=== PATIENT | male | born 1950 | race Caucasian/White ===

== ENCOUNTER → 2022-03-20 | Outpatient (CLI) | payer MEDICARE ==
[2022-03-20 14:25] LABS: HGB 13.9 g/dL (13.0-17.0); MCHC 32.3 g/dL (32.0-37.0); NRBC Per 100 WBC 0 /100 WBCS (0.0-0.0); Platelet Count 91 X 10*3/uL (140-440); RBC 4.48 X 10*6/uL (4.40-5.60); RDW 13.6 % (11.5-14.5); WBC 3.97 X 10*3/uL (4.50-10.00)
[2022-03-20 14:34] LABS: Rheumatoid Factor, Qnt <10 IU/mL (0-15); Uric Acid 11.2 mg/dL (3.7-8.7)
== END | disposition home or self-care (01) ==
LOC: LABWHC1 08:54
PROVIDERS: ATTEND Podiatrist
DX: M79.672 Pain in left foot (principal)
CPT/HCPCS: 36415; 84550; 85027; 86140; 86431

== ENCOUNTER 2025-01-04 08:03 | Emergency (ER) | payer MEDICARE ==
--- NOTE | 2025-01-04 08:11 | ED ---
Extremity Problem HPI - General Chief complaint: Extremity Problem,Nontraumatic Stated complaint: L leg pain and swelling Time Seen by Provider: 01/04/25 08:08 Source: patient, RN notes reviewed Mode of arrival: wheelchair Limitations: no limitations - History of Present Illness Initial comments: 74-year-old male presents emergency department chief complaint of left leg pain and swelling. Patient states that started without injury or known tr auma. Patient states he is concerned about possible blood clot without history. He states pain started as knee is now into his thigh with increasing swelling denies any discoloration denies any focal weakness denies any back pain patient states he has no abdominal complaints no chest pain or shortness of breath. Patient is able to ambulate in which he states he initially thought this was related to his gout but states is not his normal issues. - Related Data Allergies Allergy/AdvReac Type Severity Reaction Status Date / Time No Known Allergies Allergy Verified 01/04/25 08:09 Review of Systems ROS Statement: Those systems with pertinent positive or pertinent negative responses have been documented in the HPI. ROS Other: All systems not noted in ROS Statement are negative. Past Medical History Past Medical History: Cancer Additional Past Medical History / Comment(s): Gout,Kidney Cancer, non hodgkin's lymphoma History of Any Multi-Drug Resistant Organisms: None Reported Additional Past Surgical History / Comment(s): kidney removed Past Psychological History: No Psychological Hx Reported Smoking Status: Former smoker Past Alcohol Use History: Occasional Past Drug Use History: None Reported General Exam Limitations: no limitations General appearance: alert, in no apparent distress Head exam: Present: atraumatic, normocephalic, normal inspection Eye exam: Present: normal appearance, PERRL, EOMI. Absent: scleral icterus, conjunctival injection, periorbital swelling ENT exam: Present: normal exam, mucous membranes moist Neck exam: Present: normal inspection, full ROM. Absent: tenderness, meningismus, lymphadenopathy Respiratory exam: Present: normal lung sounds bilaterally. Absent: respiratory distress, wheezes, rales, rhonchi, stridor Cardiovascular Exam: Present: regular rate, normal rhythm, normal heart sounds. Absent: systolic murmur, diastolic murmur, rubs, gallop, clicks Extremities exam: Present: other (Left knee, left thigh there is notable swelling there is no erythema, patient does have full range of motion with equal pedal pulses there is no calf tenderness.) Neurological exam: Present: alert, oriented X3, reflexes normal. Absent: motor sensory deficit Course Vital Signs 01/04/25 01/04/25 01/04/25 08:04 08:55 11:30 Temperature 97.6 F 98 F Pulse Rate 70 60 62 Respiratory 18 16 16 Rate Blood Pressure 203/83 177/81 168/80 O2 Sat by Pulse 98 96 97 Oximetry Medical Decision Making - Medical Decision Making Was pt. sent in by a medical professional or institution (, PA, CAMPUS PRESIDENT, urgent care, hospital, or assisted...) When possible be specific @ -No Did you speak to anyone other than the patient for history (EMS, parent, family, police, friend...)? What history was obtained from this source @ -No Did you review nursing and triage notes (agree or disagree)? Why? @ -I reviewed and agree with nursing and triage notes Were old charts reviewed (outside hosp., previous admission, EMS record, old EKG, old radiological studies, urgent care reports/EKG's, assisted records)? Report findings @ -No old charts were reviewed Differential Diagnosis (chest pain, altered mental status, abdominal pain women, abdominal pain men, vaginal bleeding, weakness, fever, dyspnea, syncope, headache, dizziness, GI bleed, back pain, seizure, CVA, palpatations, mental health, musculoskeletal)? @ -Differential Musculoskeletal Muscular strain, contusion, ligament sprain, fracture, arthritis, septic arthritis, bursitis, cellulitis, muscle spasm, nerve compression, DVT, arterial occlusion, herpes zoster, electrolyte abnormality, tumor.... This is not meant to be in all inclusive list EKG interpreted by me (3pts min.). @ -None X-rays interpreted by me (1pt min.). @ -X-ray left knee no acute fracture or acute anomaly CT interpreted by me (1pt min.). @ -None done U/S interpreted by me (1pt. min.). @ -Ultrasound venous Doppler left leg negative for acute DVT What testing was considered but not performed or refused? (CT, X-rays, U/S, labs)? Why? @ -None What meds were considered but not given or refused? Why? @ -None Did you discuss the management of the patient with other professionals (professionals i.e. , PA, CAMPUS PRESIDENT, lab, RT, psych nurse, vp digital marketing social media and crm, civil engineering teacher, teacher, technology officer, rn case manager)? Give summary @ -No Was smoking cessation discussed for >3mins.? @ -No Was critical care preformed (if so, how long)? @ -No Were there social determinants of health that impacted care today? How? (Homelessness, low income, unemployed, alcoholism, drug addiction, transportation, low edu. Level, literacy, decrease access to med. care, [facility]ci, rehab)? @ -No Was there de-escalation of care discussed even if they declined (Discuss DNR or withdrawal of care, Hospice)? DNR status @ -No What co-morbidities impacted this encounter? (DM, HTN, Smoking, COPD, CAD, Cancer, CVA, ARF, Chemo, Hep., AIDS, mental health diagnosis, sleep apnea, morbid obesity)? @ -None Was patient admitted / discharged? Hospital course, mention meds given and route, prescriptions, significant lab abnormalities, going to OR and other pertinent info. @ -Discharged patient presented for left leg pain and swelling there is no erythema no signs of infection he has neurovascular intact negative ultrasound and pulses are equal bilaterally patient may have soft tissue injury patient will follow-up with orthopedics we discussed strict return parameters patient feels comfortable with discharge. Undiagnosed new problem with uncertain prognosis? @ -No Drug Therapy requiring intensive monitoring for toxicity (Heparin, Nitro, Insulin, Cardizem)? @ -No Were any procedures done? @ -No Diagnosis/symptom? @Leg pain and swelling Acute, or Chronic, or Acute on Chronic? @ -Acute Uncomplicated (without systemic symptoms) or Complicated (systemic symptoms)? @ -Uncomplicated Side effects of treatment? @ -No Exacerbation, Progression, or Severe Exacerbation? @ -No Poses a threat to life or bodily function? How? (Chest pain, [place], [place], pneumonia, PE, COPD, DKA, ARF, appy, cholecystitis, CVA, Diverticulitis, Homicidal, Suicidal, threat to staff... and all critical care pts) @ -No - Lab Data Result diagrams: 01/04/25 08:26 01/04/25 08:26 Lab Results 01/04/25 01/04/25 01/04/25 Range/Units 08:26 08:26 08:26 WBC 5.5 (3.8-10.6) k/uL RBC 4.65 (4.30-5.90) m/uL Hgb 14.8 (13.0-17.5) gm/dL Hct 43.8 (39.0-53.0) % MCV 94.1 (80.0-100.0) fL MCH 31.8 (25.0-35.0) pg MCHC 33.8 (31.0-37.0) g/dL RDW 13.6 (11.5-15.5) % Plt Count 87 L (150-450) k/uL MPV 8.2 Neutrophils % 66 % Lymphocytes % 22 % Monocytes % 8 % Eosinophils % 2 % Basophils % 0 % Neutrophils # 3.6 (1.3-7.7) k/uL Lymphocytes # 1.2 (1.0-4.8) k/uL Monocytes # 0.4 (0-1.0) k/uL Eosinophils # 0.1 (0-0.7) k/uL Basophils # 0.0 (0-0.2) k/uL PT 10.6 (10.0-12.5) sec INR 0.9 (<1.2) APTT 24.0 (22.0-30.0) sec Sodium 140 (137-145) mmol/L Potassium 4.8 (3.5-5.1) mmol/L Chloride 104 (98-107) mmol/L Carbon Dioxide 27 (22-30) mmol/L Anion Gap 9 mmol/L BUN 39 H (9-20) mg/dL Creatinine 1.88 H (0.66-1.25) mg/dL Est GFR (CKD-EPI)AfAm 39 (>60 ml/min/1.73 sqM) Est GFR (CKD-EPI)NonAf 34 (>60 ml/min/1.73 sqM) Glucose 129 H (74-99) mg/dL Uric Acid (3.5-8.5) mg/dL Calcium 9.4 (8.4-10.2) mg/dL Total Bilirubin 1.2 (0.2-1.3) mg/dL AST 30 (17-59) U/L ALT 24 (4-49) U/L Alkaline Phosphatase 67 (38-126) U/L C-Reactive Protein (<1.0) mg/dL Total Protein 6.6 (6.3-8.2) g/dL Albumin 4.0 (3.5-5.0) g/dL 01/04/25 Range/Units 08:26 WBC (3.8-10.6) k/uL RBC (4.30-5.90) m/uL Hgb (13.0-17.5) gm/dL Hct (39.0-53.0) % MCV (80.0-100.0) fL MCH (25.0-35.0) pg MCHC (31.0-37.0) g/dL RDW (11.5-15.5) % Plt Count (150-450) k/uL MPV Neutrophils % % Lymphocytes % % Monocytes % % Eosinophils % % Basophils % % Neutrophils # (1.3-7.7) k/uL Lymphocytes # (1.0-4.8) k/uL Monocytes # (0-1.0) k/uL Eosinophils # (0-0.7) k/uL Basophils # (0-0.2) k/uL PT (10.0-12.5) sec INR (<1.2) APTT (22.0-30.0) sec Sodium (137-145) mmol/L Potassium (3.5-5.1) mmol/L Chloride (98-107) mmol/L Carbon Dioxide (22-30) mmol/L Anion Gap mmol/L BUN (9-20) mg/dL Creatinine (0.66-1.25) mg/dL Est GFR (CKD-EPI)AfAm (>60 ml/min/1.73 sqM) Est GFR (CKD-EPI)NonAf (>60 ml/min/1.73 sqM) Glucose (74-99) mg/dL Uric Acid 8.0 (3.5-8.5) mg/dL Calcium (8.4-10.2) mg/dL Total Bilirubin (0.2-1.3) mg/dL AST (17-59) U/L ALT (4-49) U/L Alkaline Phosphatase (38-126) U/L C-Reactive Protein 8.8 H (<1.0) mg/dL Total Protein (6.3-8.2) g/dL Albumin (3.5-5.0) g/dL Disposition Clinical Impression: Leg pain, Leg swelling Disposition: HOME SELF-CARE Condition: Stable Instructions (If sedation given, give patient instructions): Leg Pain (ED) Additional Instructions: Please return to the Emergency Department if symptoms worsen or any other concerns. Is patient prescribed a controlled substance at d/c from ED?: No Referrals: None,Stated [Primary Care Provider] - 1-2 days Chapin Mallory DO [Doctor of Osteopathic Medicine] - 1-2 days Time of Disposition: 11:03
[2025-01-04 08:46] LABS: ALT 24 U/L (4-49); AST 30 U/L (17-59); African American GFR (CKD) 39 (>60 ml/min/1.73 sqM); Alkaline Phosphatase 67 U/L (38-126); Anion Gap 9 mmol/L; Basophils % (A) 0 %; Blood Urea Nitrogen 39 mg/dL (9-20); Calcium 9.4 mg/dL (8.4-10.2); Carbon Dioxide 27 mmol/L (22-30); Chloride 104 mmol/L (98-107); Eosinophils # (A) 0.1 k/uL (0-0.7); Eosinophils % (A) 2 %; Glucose 129 mg/dL (74-99); HCT 43.8 % (39.0-53.0); HGB 14.8 gm/dL (13.0-17.5); Lymphocytes # (A) 1.2 k/uL (1.0-4.8); Lymphocytes % (A) 22 %; MCH 31.8 pg (25.0-35.0); MCHC 33.8 g/dL (31.0-37.0); MCV 94.1 fL (80.0-100.0); Mean Platelet Volume 8.2; Monocytes # (A) 0.4 k/uL (0-1.0); Monocytes % (A) 8 %; Neutrophils # (A) 3.6 k/uL (1.3-7.7); Neutrophils % (A) 66 %; Non-African American GFR(CKD) 34 (>60 ml/min/1.73 sqM); Potassium 4.8 mmol/L (3.5-5.1); RBC 4.65 m/uL (4.30-5.90); RDW 13.6 % (11.5-15.5); Sodium 140 mmol/L (137-145); Total Bilirubin 1.2 mg/dL (0.2-1.3); Total Protein 6.6 g/dL (6.3-8.2); WBC 5.5 k/uL (3.8-10.6)
[2025-01-04] MEDS: KETOROLAC 15 MG/ML 1 ML VIAL IVP STA (08:48)
[2025-01-04 08:49] LABS: INR 0.9 (<1.2); Prothrombin Time 10.6 sec (10.0-12.5)
--- NOTE | 2025-01-04 08:54 | US ---
EXAMINATION TYPE: US venous doppler duplex LE LT DATE OF EXAM: 01/04/2025 8:43 AM COMPARISON: NONE CLINICAL INDICATION: Male, 74 years old with history of pain; Pain and swelling since , Hx HT N and renal cancer with kidney removal 201; denies any other signs, symptoms, or relevant history , P ain TECHNIQUE: The lower extremity deep venous system is examined utilizing real time linear array sonog ammon with graded compression, color doppler sonography, and spectral doppler. SIDE PERFORMED: Left FINDINGS: VESSELS IMAGED: Common Femoral Vein Deep Femoral Vein Greater Saphenous Vein * Femoral Vein Popliteal Vein Small Saphenous Vein * Proximal Calf Veins (* superficial vessels) Left Leg: Negative for DVT, Color Doppler imaging shows patency of the vessels. Spectral waveforms a re within normal limits. IMPRESSION: 1. Left lower extremity ultrasound negative for deep venous thrombosis. [facility], , 01/04/2025 8:51 AM
[2025-01-04 09:12] VITALS: RESP 16
[2025-01-04 09:18] LABS: C Reactive Protein 8.8 mg/dL (<1.0)
[2025-01-04 09:43] LABS: Platelet Count 87 k/uL (150-450)
--- NOTE | 2025-01-04 09:49 | XR ---
EXAMINATION TYPE: XR knee complete LT DATE OF EXAM: 01/04/2025 9:17 AM COMPARISON: None. CLINICAL INDICATION: Male, 74 years old with history of pain, pain TECHNIQUE: 3 view(s) obtained. FINDINGS: Joint spaces are preserved. No acute fracture or dislocation evident. No joint effusion is evident. S oft tissues appear normal. Follow up exams can be performed 7-10 days from acute trauma for continued pain. IMPRESSION: 1. No acute osseous abnormalities left knee [facility], , 01/04/2025 9:46 AM
[2025-01-04] MEDS: ACET/COD 300 MG/30 MG STARTER PACK 6 TAB BTL PO STA (11:15)
[2025-01-04] MEDS: ONDANSETRON 4 MG/2 ML VIAL IVP STA (11:15)
[2025-01-04] MEDS: HYDROmorphone 0.5 MG/0.5 ML SYRINGE IVP STA (11:16)
[2025-01-04 11:31] VITALS: BP 168/80; PULSE 62; TEMP 98
== END 2025-01-04 11:30 | disposition home or self-care (01) ==
LOC: EC 08:03
DX: M79.605 Pain in left leg (principal); Z87.891 Personal history of nicotine dependence
CPT/HCPCS: 36415; 80053; 84550; 85025; 85610; 85730; 86140; 73562; 93971; 99284; 96374; 96375 ×2; J2405; J1885; J1171

== ENCOUNTER → 2025-01-05 | Outpatient (CLI) | payer MEDICARE ==
[2025-01-05 15:43] LABS: Appearance,BF Cloudy; Color,BF Pink
[2025-01-05 17:00] LABS: Nucleated Cells, Body Fluid 4450 /uL; RBC, Body Fluid 19250 /uL
[2025-01-05 17:02] LABS: Mononuclear WBC,Body Fluid 9 %; Polynuclear WBC,Body Fluid 91 %; Total Cells Counted,Body Fluid 100
[2025-01-06 04:01] LABS: Synovial Fld Crystals Monosod Urate (None Seen)
== END | disposition home or self-care (01) ==
LOC: LABWHC1 12:31
PROVIDERS: ATTEND Orthopaedic Surgery
DX: M25.562 Pain in left knee (principal)
CPT/HCPCS: 36415; 85652; 86140; 87070; 87075; 87205; 89050; 89060

== ENCOUNTER 2025-02-20 03:07 | Inpatient (IN) | payer MEDICARE ==
[2025-02-20 03:50] LABS: ALT 16 U/L (4-49); AST 27 U/L (17-59); African American GFR (CKD) 35 (>60 ml/min/1.73 sqM); Alkaline Phosphatase 74 U/L (38-126); Anion Gap 12 mmol/L; Blood Urea Nitrogen 34 mg/dL (9-20); Calcium 9.4 mg/dL (8.4-10.2); Carbon Dioxide 25 mmol/L (22-30); Chloride 105 mmol/L (98-107); Glucose 162 mg/dL (74-99); Non-African American GFR(CKD) 31 (>60 ml/min/1.73 sqM); Sodium 142 mmol/L (137-145); Total Bilirubin 1.2 mg/dL (0.2-1.3); Total Protein 6.3 g/dL (6.3-8.2)
[2025-02-20 03:56] LABS: Partial Thromboplastin Time 22.6 sec (22.0-30.0); Prothrombin Time 10.9 sec (10.0-12.5)
[2025-02-20 03:59] LABS: NT-Pro-B-Type Natriuretic Pept 3400 pg/mL
--- NOTE | 2025-02-20 04:16 | ED ---
SOB HPI - General Chief Complaint: Shortness of Breath Stated Complaint: Difficulty Breathing Source: EMS Mode of arrival: EMS - History of Present Illness Initial Comments: 74-year-old male with past medical history of kidney cancer status post nephrectomy who presents emergency department reporting shortness of breath. States it started in the middle of the night. He has never had breathing issues. Denies history of asthma or COPD. Did smoke however quit 20 years ago. No history of any heart problems. Does admit to hypertension. He is supposed to be on 3 medications to control his blood pressure however he has not been taking them for approximately 1 month. States he is in between primary care doctors. Denies history of congestive heart failure. No history of coronary disease. Denies any chest pain. No history of fevers, chills or cough. Continues to urinate normally. No other alleviating, precipitating modifying factors - Related Data Allergies Allergy/AdvReac Type Severity Reaction Status Date / Time No Known Allergies Allergy Verified 01/04/25 08:09 Review of Systems ROS Statement: Those systems with pertinent positive or pertinent negative responses have been documented in the HPI. ROS Other: All systems not noted in ROS Statement are negative. Past Medical History Past Medical History: Cancer Additional Past Medical History / Comment(s): Gout,Kidney Cancer, non hodgkin's lymphoma History of Any Multi-Drug Resistant Organisms: None Reported Additional Past Surgical History / Comment(s): kidney removed Past Psychological History: No Psychological Hx Reported Smoking Status: Former smoker Past Alcohol Use History: Occasional Past Drug Use History: None Reported General Exam General appearance: alert, in no apparent distress Head exam: Present: atraumatic, normocephalic, normal inspection Eye exam: Present: normal appearance, PERRL, EOMI. Absent: scleral icterus, conjunctival injection, periorbital swelling ENT exam: Present: normal exam, mucous membranes moist Neck exam: Present: normal inspection. Absent: tenderness, meningismus, lymphadenopathy Respiratory exam: Present: normal lung sounds bilaterally. Absent: respiratory distress, wheezes, rales, rhonchi, stridor Cardiovascular Exam: Present: regular rate, normal rhythm, normal heart sounds. Absent: systolic murmur, diastolic murmur, rubs, gallop, clicks GI/Abdominal exam: Present: soft, normal bowel sounds. Absent: distended, tenderness, guarding, rebound, rigid Extremities exam: Present: normal inspection, full ROM, normal capillary refill. Absent: tenderness, pedal edema, joint swelling, calf tenderness Back exam: Present: normal inspection Neurological exam: Present: alert, oriented X3, CN II-XII intact Psychiatric exam: Present: normal affect, normal mood Skin exam: Present: warm, dry, intact, normal color. Absent: rash Course Vital Signs 02/20/25 02/20/25 03:11 05:14 Temperature 97.4 F L Pulse Rate 76 74 Respiratory 20 18 Rate Blood Pressure 197/92 179/94 O2 Sat by Pulse 97 95 Oximetry Medical Decision Making - Medical Decision Making Was pt. sent in by a medical professional or institution (, PA, ELECTRONICS COMMODITY MANAGER, urgent care, hospital, or penitentiary...) When possible be specific @ -[No] Did you speak to anyone other than the patient for history (EMS, parent, family, police, friend...)? What history was obtained from this source @ -[No] Did you review nursing and triage notes (agree or disagree)? Why? @ -[I reviewed and agree with nursing and triage notes] Were old charts reviewed (outside hosp., previous admission, EMS record, old EKG, old radiological studies, urgent care reports/EKG's, penitentiary records)? Report findings @ -[No old charts were reviewed] Differential Diagnosis (chest pain, altered mental status, abdominal pain women, abdominal pain men, vaginal bleeding, weakness, fever, dyspnea, syncope, headache, dizziness, GI bleed, back pain, seizure, CVA, palpatations, mental health, musculoskeletal)? @ -[not applicable] EKG interpreted by me (3pts min.). @ -Yes and demonstrates sinus rhythm with a rate of 75. VT interval 181. QRS 105. QTc of 454. ST depression V2 through V6 X-rays interpreted by me (1pt min.). @ -[None done] CT interpreted by me (1pt min.). @ -[None done] U/S interpreted by me (1pt. min.). @ -[None done] What testing was considered but not performed or refused? (CT, X-rays, U/S, labs)? Why? @ -[None] What meds were considered but not given or refused? Why? @ -[None] Did you discuss the management of the patient with other professionals (professionals i.e. , PA, ELECTRONICS COMMODITY MANAGER, lab, RT, psych nurse, addiction social worker, jewel inspector, teacher, strike operations officer, residential case manager)? Give summary @ -[No] Was smoking cessation discussed for >3mins.? @ -[No] Was critical care preformed (if so, how long)? @ -[No] Were there social determinants of health that impacted care today? How? (Homelessness, low income, unemployed, alcoholism, drug addiction, transportation, low edu. Level, literacy, decrease access to med. care, usp, re hab)? @ -[No] Was there de-escalation of care discussed even if they declined (Discuss DNR or withdrawal of care, Hospice)? DNR status @ -[No] What co-morbidities impacted this encounter? (DM, HTN, Smoking, COPD, CAD, Cancer, CVA, ARF, Chemo, Hep., AIDS, mental health diagnosis, sleep apnea, morbi d obesity)? @ -[None] Was patient admitted / discharged? Hospital course, mention meds given and ro stefany, prescriptions, significant lab abnormalities, going to OR and other pertinent info. @ -[hospital course] Undiagnosed new problem with uncertain prognosis? @ -[No] Drug Therapy requiring intensive monitoring for toxicity (Heparin, Nitro, Insulin, Cardizem)? @ -[No] Were any procedures done? @ -[No] Diagnosis/symptom? @ -[default] Acute, or Chronic, or Acute on Chronic? @ -[default] Uncomplicated (without systemic symptoms) or Complicated (systemic symptoms)? @ -[default] Side effects of treatment? @ -[No] Exacerbation, Progression, or Severe Exacerbation? @ -[No] Poses a threat to life or bodily function? How? (Chest pain, [place], [place], pneumonia, PE, COPD, DKA, ARF, appy, cholecystitis, CVA, Diverticulitis, Homicidal, Suicidal, threat to staff... and all critical care pts) @ -[No] - Lab Data Result diagrams: 02/20/25 03:16 02/20/25 03:16 Lab Results 02/20/25 02/20/25 02/20/25 Range/Units 03:16 03:16 03:16 WBC 4.24 L (4.50-10.00) 10*3/uL RBC 4.27 L (4.40-5.60) 10*6/uL Hgb 13.5 (13.0-17.0) g/dL Hct 40.1 (39.6-50.0) % MCV 93.9 (80.0-97.0) fL MCH 31.6 (27.0-32.0) pg MCHC 33.7 (32.0-37.0) g/dL Plt Count 77 L (140-440) 10*3/uL MPV 10.3 (9.5-12.2) fL Immature Gran % (Auto) 0.5 % Neutrophils % 71.0 % Lymphocytes % 19.8 % Monocytes % 7.5 % Eosinophils % 0.7 % Basophils % 0.5 % Immature Gran # 0.02 (0.00-0.04) 10*3/uL Neutrophils # 3.01 (1.80-7.70) 10*3/uL Lymphocytes # 0.84 L (0.90-5.00) 10*3/uL Monocytes # 0.32 (0.20-1.00) 10*3/uL Eosinophils # 0.03 L (0.04-0.35) 10*3/uL Basophils # 0.02 (0.00-0.10) 10*3/uL Manual Slide Review Performed PT 10.9 (10.0-12.5) sec INR 1.0 (<1.2) APTT 22.6 (22.0-30.0) sec D-Dimer 3.60 H (<0.60) mg/L FEU Sodium 142 (137-145) mmol/L Potassium 4.0 (3.5-5.1) mmol/L Chloride 105 (98-107) mmol/L Carbon Dioxide 25 (22-30) mmol/L Anion Gap 12 mmol/L BUN 34 H (9-20) mg/dL Creatinine 2.05 H (0.66-1.25) mg/dL Est GFR (CKD-EPI)AfAm 35 (>60 ml/min/1.73 sqM) Est GFR (CKD-EPI)NonAf 31 (>60 ml/min/1.73 sqM) Glucose 162 H (74-99) mg/dL Calcium 9.4 (8.4-10.2) mg/dL Total Bilirubin 1.2 (0.2-1.3) mg/dL AST 27 (17-59) U/L ALT 16 (4-49) U/L Alkaline Phosphatase 74 (38-126) U/L Troponin I (0.000-0.034) ng/mL NT-Pro-B Natriuret Pep 3400 pg/mL Total Protein 6.3 (6.3-8.2) g/dL Albumin 4.0 (3.5-5.0) g/dL Influenza Type A (PCR) (Not Detectd) Influenza Type B (PCR) (Not Detectd) RSV (PCR) (Not Detectd) SARS-CoV-2 (PCR) (Not Detectd) 02/20/25 02/20/25 Range/Units 03:16 03:29 WBC (4.50-10.00) 10*3/uL RBC (4.40-5.60) 10*6/uL Hgb (13.0-17.0) g/dL Hct (39.6-50.0) % MCV (80.0-97.0) fL MCH (27.0-32.0) pg MCHC (32.0-37.0) g/dL Plt Count (140-440) 10*3/uL MPV (9.5-12.2) fL Immature Gran % (Auto) % Neutrophils % % Lymphocytes % % Monocytes % % Eosinophils % % Basophils % % Immature Gran # (0.00-0.04) 10*3/uL Neutrophils # (1.80-7.70) 10*3/uL Lymphocytes # (0.90-5.00) 10*3/uL Monocytes # (0.20-1.00) 10*3/uL Eosinophils # (0.04-0.35) 10*3/uL Basophils # (0.00-0.10) 10*3/uL Manual Slide Review PT (10.0-12.5) sec INR (<1.2) APTT (22.0-30.0) sec D-Dimer (<0.60) mg/L FEU Sodium (137-145) mmol/L Potassium (3.5-5.1) mmol/L Chloride (98-107) mmol/L Carbon Dioxide (22-30) mmol/L Anion Gap mmol/L BUN (9-20) mg/dL Creatinine (0.66-1.25) mg/dL Est GFR (CKD-EPI)AfAm (>60 ml/min/1.73 sqM) Est GFR (CKD-EPI)NonAf (>60 ml/min/1.73 sqM) Glucose (74-99) mg/dL Calcium (8.4-10.2) mg/dL Total Bilirubin (0.2-1.3) mg/dL AST (17-59) U/L ALT (4-49) U/L Alkaline Phosphatase (38-126) U/L Troponin I 0.088 H* (0.000-0.034) ng/mL NT-Pro-B Natriuret Pep pg/mL Total Protein (6.3-8.2) g/dL Albumin (3.5-5.0) g/dL Influenza Type A (PCR) Not Detected (Not Detectd) Influenza Type B (PCR) Not Detected (Not Detectd) RSV (PCR) Not Detected (Not Detectd) SARS-CoV-2 (PCR) Not Detected (Not Detectd) Disposition Clinical Impression: Hypoxia, Heart failure, CKD (chronic kidney disease), NSTEMI (non-ST elevated myocardial infarction) Disposition: ADMITTED IP TO THIS HOSP Condition: Stable Is patient prescribed a controlled substance at d/c from ED?: No Time of Disposition: 05:20 Decision to Admit Reason: Admit from EC Decision Date: 02/20/25 Decision Time: 05:20
[2025-02-20 04:20] LABS: Influenza A Not Detected (Not Detectd); Influenza B Not Detected (Not Detectd); RSV Not Detected (Not Detectd)
[2025-02-20 04:50] LABS: Basophils # (A) 0.02 10*3/uL (0.00-0.10); Basophils % (A) 0.5 %; Eosinophils # (A) 0.03 10*3/uL (0.04-0.35); Eosinophils % (A) 0.7 %; HCT 40.1 % (39.6-50.0); HGB 13.5 g/dL (13.0-17.0); Lymphocytes # (A) 0.84 10*3/uL (0.90-5.00); Lymphocytes % (A) 19.8 %; MCH 31.6 pg (27.0-32.0); MCHC 33.7 g/dL (32.0-37.0); MCV 93.9 fL (80.0-97.0); Mean Platelet Volume 10.3 fL (9.5-12.2); Monocytes # (A) 0.32 10*3/uL (0.20-1.00); Monocytes % (A) 7.5 %; Neutrophils # (A) 3.01 10*3/uL (1.80-7.70); RBC 4.27 10*6/uL (4.40-5.60); RDW 14.1 % (11.5-14.5); WBC 4.24 10*3/uL (4.50-10.00)
--- NOTE | 2025-02-20 05:17 | XR ---
EXAM: XR Chest, 2 Views CLINICAL HISTORY: ITS.REASON XR Reason: difficulty breathing TECHNIQUE: Frontal and lateral views of the chest. COMPARISON: No relevant prior studies available. IMPRESSION: Cardiomegaly. Mild vascular congestion. Mild pleural effusions
[2025-02-20] MEDS ORDERED: NALOXONE 0.4 MG/ML 1 ML VIAL IV PRN (05:38)
[2025-02-20] MEDS: HEPARIN SOD,PORK IN 0.45% NACL 25,000 UNIT in 0.45% NACL 1 250ML.BAG IV SCH (05:41)
[2025-02-20] MEDS: ASPIRIN 81 MG PO STA (05:42)
[2025-02-20] MEDS: amLODIPine 10 MG TAB PO STA (05:44)
[2025-02-20 06:00] LABS: Platelet Count 77 10*3/uL (140-440)
--- NOTE | 2025-02-20 07:44 | US ---
EXAMINATION TYPE: US venous doppler duplex LE DATE OF EXAM: 02/20/2025 7:32 AM COMPARISON: NONE CLINICAL INDICATION: Male, 74 years old with history of swelling, elevated d-dimer; d-dimer, pt. lucita es edema, Pain TECHNIQUE: The lower extremity deep venous system is examined utilizing real time linear array sonog ammon with graded compression, color doppler sonography, and spectral doppler. SIDE PERFORMED: Bilateral FINDINGS: VESSELS IMAGED: Common Femoral Vein Deep Femoral Vein Greater Saphenous Vein * Femoral Vein Popliteal Vein Small Saphenous Vein * Proximal Calf Veins Left Peroneal veins Posterior tibial veins (* superficial vessels) Right Leg: Negative for DVT, Color Doppler imaging shows patency of the vessels. Spectral waveforms are within normal limits. Left Leg: Negative for DVT, Color Doppler imaging shows patency of the vessels. Spectral waveforms a re within normal limits. IMPRESSION: No evidence for DVT within the bilateral lower extremities. [facility], Workstation: [id number], 02/20/2025 7:42 AM
[2025-02-20] MEDS: METOPROLOL SUCCINATE (ER) 50 MG TAB.ER.24H PO SCH (08:20)
[2025-02-20] MEDS: FUROSEMIDE 10 MG/ML 4 ML VIAL IV SCH (08:20)
[2025-02-20] MEDS: lisinopriL 5 MG TAB PO SCH (08:20)
[2025-02-20 10:38] LABS: Chol/HDL Ratio 3.84 Ratio; LDL Cholesterol,Calculated 72.6 mg/dL (0.0-131.0); VLDL Calculation 16.92 mg/dL (5.00-40.00)
--- NOTE | 2025-02-20 11:56 | P.HPIM ---
History of Present Illness H&P Date: 02/20/25 Patient is a 74-year-old male with past medical history of kidney cancer status post nephrectomy, hypertension, gout, non-Hodgkin's lymphoma, remote smoking quit 20 years ago, who presented for shortness of breath that started in the middle of the night. No associated fevers, chills, chest pain, cough, nausea, vomiting abdominal pain, dysuria. Patient reports noncompliant with blood pr essure medications, previously was on 3 medications. No personal history of heart failure, COPD or asthma. Yesterday evening they had [place] food, also adds that patient consumes lots of salt, we discussed diet modifications. On arrival afebrile, heart rate in 70s, BP elevated initially 197/92, came down to 149/72, SpO2 97% on 2l Blood work revealed mild leukopenia WBC 4.24, previously back in 2021 his WBC count was once noted to be 3.97, hemoglobin is normal, platelet count low 77, patient has chronic thrombocytopenia, D-dimer elevated 3.6, sodium and potassium normal, creatinine 2.05, back in December 30.88, AST and ALT normal, glucose elevated 162, GFR CKD 3B, troponin elevated 0.0 88, BNP 3400, Cepheid negative. EKG showed sinus rhythm, QTc 454, no ST elevation, chest x-ray with mild vascular congestion and pleural effusion bilateral, venous duplex showed no evidence of DVT bilaterally. Patient was started on heparin drip, cardiology consulted. VQ scan ordered. Patient was started on Lasix 40 IV daily, aspirin 81 mg p.o. daily, atorvastatin milligram p.o. nightly, lisinopril 5 mg p.o. daily, metoprolol succinate 50 mg p.o. daily, amlodipine 10 mg p.o. daily Pertinent positives and negatives as discussed in HPI, a complete review of systems was performed and all other systems are negative. Patient seen and examined at bedside. Vital signs reviewed General: nontoxic, no distress, appears at stated age Derm: warm, dry Head: atraumatic, normocephalic, symmetric Eyes: EOMI, no lid lag, anicteric sclera, pupils equal round reactive to light ENT: Nose and ears atraumatic Neck: No thyromegaly, supple Mouth: no lip lesion, mucus membranes moist Cardiovascular: S1S2 reg, no murmur, no edema Lungs: Bibasilar crackles, no wheeze, no accessory muscle use Abdominal: soft, nontender to palpation, no guarding, no appreciable organomegaly Ext: no gross muscle atrophy, muscle strength muscle strength 5 out of 5 in all 4 extremities, no contractures Neuro: CN II-XII grossly intact Psych: Alert, oriented, appropriate affect Assessment/Plan: Shortness of breath likely secondary to new onset CHF NSTEMI likely secondary to above Uncontrolled hypertension, history of noncompliance Elevated D-dimer, CT ruled out -started on Lasix 40 IV daily, aspirin 81 mg p.o. daily, atorvastatin milligram p.o. nightly, lisinopril 5 mg p.o. daily, metoprolol succinate 50 mg p.o. daily, amlodipine 10 mg p.o. daily - Cardiology consulted, appreciate recommendations -Continue heparin drip -Trend troponins -Continue telemetry -TTE ordered and pending -VQ scan ordered -Continue supplemental oxygen, no hypoxia documented, wean off as tolerated -Check metabolic panel with lipid, A1c, TSH - Strict I's and O's, daily weight History of kidney cancer status post nephrectomy CKD 3B -Monitor BMP daily The patient is admitted with an anticipated greater than 2 midnight stay as inpatient status for evaluation of new onset heart failure, hypoxic respiratory failure. CODE STATUS: Full code DVT prophylaxis: Heparin drip Anticipated discharge date: TBD Anticipated discharge place: TBD A total of 38 minutes was spent on the care of this complex patient more than 50% of the time was spent in counseling and care coordination. Past Medical History Past Medical History: Cancer Additional Past Medical History / Comment(s): Gout,Kidney Cancer, non hodgkin's lymphoma History of Any Multi-Drug Resistant Organisms: None Reported Additional Past Surgical History / Comment(s): kidney removed Past Psychological History: No Psychological Hx Reported Smoking Status: Former smoker Past Alcohol Use History: Occasional Past Drug Use History: None Reported Medications and Allergies Home Medications Medication Instructions Recorded Confirmed Type No Known Home Medications 02/20/25 02/20/25 History Allergies Allergy/AdvReac Type Severity Reaction Status Date / Time No Known Allergies Allergy Verified 02/20/25 09:50 Physical Exam Vitals: Vital Signs Temp Pulse Resp BP Pulse Ox 02/20/25 08:19 67 18 145/74 96 02/20/25 07:35 97.9 F 64 20 149/72 96 02/20/25 05:14 74 18 179/94 95 02/20/25 03:11 97.4 F L 76 20 197/92 97 Intake and Output 02/19/25 02/20/25 02/20/25 22:59 06:59 14:59 Other: Weight 107.048 kg Results CBC & Chem 7: 02/20/25 03:16 02/20/25 03:16 Labs: Abnormal Lab Results - Last 24 Hours (Table) 02/20/25 02/20/25 02/20/25 Range/Units 03:16 03:16 03:16 WBC 4.24 L (4.50-10.00) 10*3/uL RBC 4.27 L (4.40-5.60) 10*6/uL Plt Count 77 L (140-440) 10*3/uL Lymphocytes # 0.84 L (0.90-5.00) 10*3/uL Eosinophils # 0.03 L (0.04-0.35) 10*3/uL D-Dimer 3.60 H (<0.60) mg/L FEU BUN 34 H (9-20) mg/dL Creatinine 2.05 H (0.66-1.25) mg/dL Glucose 162 H (74-99) mg/dL Troponin I (0.000-0.034) ng/mL 02/20/25 Range/Units 03:16 WBC (4.50-10.00) 10*3/uL RBC (4.40-5.60) 10*6/uL Plt Count (140-440) 10*3/uL Lymphocytes # (0.90-5.00) 10*3/uL Eosinophils # (0.04-0.35) 10*3/uL D-Dimer (<0.60) mg/L FEU BUN (9-20) mg/dL Creatinine (0.66-1.25) mg/dL Glucose (74-99) mg/dL Troponin I 0.088 H* (0.000-0.034) ng/mL
--- NOTE | 2025-02-20 12:14 | P.CRDCN ---
History of Present Illness Consult date: 02/20/25 Reason for Consult (text): New onset CHF, accelerated hypertension, NSTEMI History of present illness: This is a 74-year-old male with past medical history of hypertension, obstructive sleep apnea, chronic kidney disease, benign prostatic hypertrophy, macular degeneration, renal cell cancer status post resection 6 years ago. We have been asked to evaluate the patient for new onset CHF. Patient does not follow with a leather goods i assembler but did see 1 approximately 6 years ago before his kidney surgery. Patient states he woke up from a sleep as he was unable to breathe. He states he normally will have some occasional dyspnea on exertion with stairs but is not usually a problem. This had a sudden onset this morning at 2:30 in the morning. He states prior to that he was feeling a little bit off. He thought that the oxygen provided by EMS seem to help. He denies cough no chest pain no palpitations. He denies any lower extremity edema. He denies any recent weight change. He does add salt to his food regularly. He states he feels well now. Initial blood pressure 197/92 and now 149/72, heart rate 64, pulse ox 96% on 2 L nasal cannula. Patient was started on heparin drip and received 1 dose of amlodipine 10 mg. -EKG: Sinus rhythm no acute ST-T wave changes. -Chest x-ray: Cardiomegaly. Mild vascular congestion. Mild pleural effusions. -Venous duplex of the bilateral lower extremities reveals no evidence of DVT bilaterally. -Laboratory studies: WBC 4.2, hemoglobin 13.5, platelet count 77. D-dimer 3.6. BUN 34 creatinine 2.05. Troponin 0.088. Cepheid viral panel not detected. -Home cardiac medications As verbally stated by patient: Vasotec 5 mg daily, amlodipine 10 mg daily, Toprol XL 50 mg at bedtime. - Review Of Systems: At the time of my exam: CONSTITUTIONAL: Denies fever or chills. HEENT: Denies blurred vision, vision changes, or eye pain. Denies hemoptysis CARDIOVASCULAR: Denies chest pain. Denies orthopnea. Denies PND. Denies palpitations RESPIRATORY: Denies shortness of breath. GASTROINTESTINAL: Denies abdominal pain. Denies nausea or vomiting. HEMATOLOGIC: Denies bleeding disorders. GENITOURINARY: Denies any blood in urine. SKIN: Denies puritis. Denies rash. Physical examination: Gen: This is 74-year-old male in no acute distress VS: reviewed HEENT: Head is atraumatic, normocephalic. Pupils equal, round. Sclerae is anicteric. NECK: Supple. No JVD. LUNGS: Diminished breath sounds. No wheezes or rhonchi. No intercostal retractions. HEART: Regular rate and rhythm. No murmur. ABDOMEN: Soft No tenderness. EXTREMITIES: No pedal edema. No calf tenderness. NEUROLOGICAL: Patient is awake, alert and oriented x3. Assessment: Acute heart failure, EF not known Elevated D-dimer, rule out PE Elevated troponin, possible NSTEMI but less likely due to lack of chest pain Hypertension Obstructive sleep apnea Chronic kidney disease Benign prostatic hypertrophy Renal cell cancer s/p resection 6 years ago Macular degeneration Thrombocytopenia Plan: Resume patient's home cardiac medications Continue patient on IV Lasix 40 mg daily Monitor ABIOLA, daily weights, electrolytes and renal function Continue heparin drip Patient is scheduled for VQ scan this afternoon Repeat troponin x 2 Obtain 2-D echocardiogram and Doppler study to assess cardiac structure and function Further recommendations to follow based upon clinical course Thank you kindly for this consultation. Nurse practitioner note has been reviewed, I agree with documented findings and plan of care. Patient was seen and examined. Past Medical History Past Medical History: Cancer Additional Past Medical History / Comment(s): Gout,Kidney Cancer, non hodgkin's lymphoma History of Any Multi-Drug Resistant Organisms: None Reported Additional Past Surgical History / Comment(s): kidney removed Past Psychological History: No Psychological Hx Reported Smoking Status: Former smoker Past Alcohol Use History: Occasional Past Drug Use History: None Reported Medications and Allergies Home Medications Medication Instructions Recorded Confirmed Type No Known Home Medications 02/20/25 02/20/25 History Allergies Allergy/AdvReac Type Severity Reaction Status Date / Time No Known Allergies Allergy Verified 02/20/25 09:50 Physical Exam Vitals: Vital Signs Temp Pulse Resp BP Pulse Ox 02/20/25 07:35 97.9 F 64 20 149/72 96 02/20/25 05:14 74 18 179/94 95 02/20/25 03:11 97.4 F L 76 20 197/92 97 Intake and Output 02/19/25 02/20/25 02/20/25 22:59 06:59 14:59 Other: Weight 107.048 kg Results 02/20/25 03:16 02/20/25 03:16 Cardiac Enzymes 02/20/25 02/20/25 Range/Units 03:16 03:16 AST 27 (17-59) U/L Troponin I 0.088 H* (0.000-0.034) ng/mL Coagulation 02/20/25 Range/Units 03:16 PT 10.9 (10.0-12.5) sec APTT 22.6 (22.0-30.0) sec CBC 02/20/25 Range/Units 03:16 WBC 4.24 L (4.50-10.00) 10*3/uL RBC 4.27 L (4.40-5.60) 10*6/uL Hgb 13.5 (13.0-17.0) g/dL Hct 40.1 (39.6-50.0) % Plt Count 77 L (140-440) 10*3/uL Comprehensive Metabolic Panel 02/20/25 Range/Units 03:16 Sodium 142 (137-145) mmol/L Potassium 4.0 (3.5-5.1) mmol/L Chloride 105 (98-107) mmol/L Carbon Dioxide 25 (22-30) mmol/L BUN 34 H (9-20) mg/dL Creatinine 2.05 H (0.66-1.25) mg/dL Glucose 162 H (74-99) mg/dL Calcium 9.4 (8.4-10.2) mg/dL AST 27 (17-59) U/L ALT 16 (4-49) U/L Alkaline Phosphatase 74 (38-126) U/L Total Protein 6.3 (6.3-8.2) g/dL Albumin 4.0 (3.5-5.0) g/dL Current Medications Generic Name Dose Route Start Last Admin Trade Name Freq PRN Reason Stop Dose Admin Heparin Sodium (Porcine) 0 unit 02/20/25 05:18 Heparin Sodium 1,000 Un/Ml (10ml Vl) IV PER PROTOCOL PRN Low PTT Protocol Heparin Sodium/Sodium Chloride 250 mls @ 10.009 mls/hr 02/20/25 05:30 02/20/25 05:41 25,000 unit/ Sodium Chloride IV 9.35 units/kg/hr .Q24H [facility] 10.009 mls/hr Administration Protocol 9.35 UNITS/KG/HR Naloxone HCl 0.2 mg 02/20/25 05:38 Naloxone 0.4 Mg/Ml 1 Ml Vial IV Q2M PRN Opioid Reversal Intake and Output 02/19/25 02/20/25 02/20/25 22:59 06:59 14:59 Other: Weight 107.048 kg 02/20/25 03:16 02/20/25 03:16
--- NOTE | 2025-02-20 12:19 | CA ---
Transthoracic Echo Report Name: Fili Zhou Age: 74 Gender: M : 1950 Exam Date: 02/20/2025 08:24 Exam Location: [facility] Ht (in): 72 Wt (lb): 236 Ordering Physician: Dolores Cook Attending/Referring Phys: [id number], Joey Taker Off Hemp Fiber Breann Rubio RDCS Procedure CPT: Indications: nstemi, chf Cardiac Hx: Technical Quality: Fair Contrast 1: Total Dose (mL): Contrast 2: Total Dose (mL): MEASUREMENTS (Male / Female) Normal Values 2D ECHO LV Diastolic Diameter PLAX 6.1 cm 4.2 - 5.9 / 3.9 - 5.3 cm LV Systolic Diameter PLAX 4.5 cm IVS Diastolic Thickness 1.4 cm 0.6 - 1.0 / 0.6 - 0.9 cm LVPW Diastolic Thickness 0.9 cm 0.6 - 1.0 / 0.6 - 0.9 cm LV Relative Wall Thickness 0.4 RV Internal Dim ED PLAX 2.7 cm LVOT Diameter 2.2 cm LV Diastolic Volume MOD BP 150.0 cm??? 67 - 155 / 56 - 104 cm??? LV Systolic Volume MOD BP 63.4 cm??? 22 - 58 / 19 - 49 cm??? LV Ejection Fraction MOD BP 57.7 % >= 55 % LV Cardiac Index MOD BP 2530.8 cm???/min???m??? LV Diastolic Volume MOD 4C 161.6 cm??? LV Systolic Volume MOD 4C 89.4 cm??? LV Ejection Fraction MOD 4C 44.7 % LV Cardiac Index MOD 4C 2108.8 cm???/min???m??? LV Diastolic Length 4C 9.4 cm LV Systolic Length 4C 7.9 cm LV Diastolic Volume MOD 2C 139.0 cm??? LV Systolic Volume MOD 2C 43.6 cm??? LV Ejection Fraction MOD 2C 68.6 % LV Cardiac Index MOD 2C 2787.6 cm???/min???m??? LV Diastolic Length 2C 9.3 cm LV Systolic Length 2C 7.6 cm M-MODE Aortic Root Diameter MM 3.1 cm LA Systolic Diameter MM 3.2 cm LA Ao Ratio MM 1.0 AV Cusp Separation MM 1.3 cm DOPPLER AV Peak Velocity 231.4 cm/s AV Peak Gradient 21.4 mmHg AV Mean Velocity 155.2 cm/s AV Mean Gradient 11.0 mmHg AV Velocity Time Integral 40.1 cm LVOT Peak Velocity 135.7 cm/s LVOT Peak Gradient 7.4 mmHg LVOT Velocity Time Integral 27.1 cm LVOT Stroke Volume 106.7 cm??? LVOT Stroke Volume Index 46.7 ml/m??? LVOT Cardiac Index 3116.2 cm???/min???m??? AV Area Cont Eq vti 2.7 cm??? AV Area Cont Eq pk 2.3 cm??? Mitral E Point Velocity 82.5 cm/s Mitral A Point Velocity 131.0 cm/s Mitral E to A Ratio 0.6 MV Deceleration Time 354.7 ms MV E' Velocity 4.7 cm/s Mitral E to MV E' Ratio 17.4 TR Peak Velocity 178.2 cm/s TR Peak Gradient 12.7 mmHg PV Peak Velocity 107.2 cm/s PV Peak Gradient 4.6 mmHg FINDINGS Left Ventricle Left ventricular ejection fraction is estimated at 55-60 %. Moderately increased septal wall thickness. Mildly increased left ventricular diastolic diameter. Normal left ventricular systolic function with no obvious regional wall motion abnormalities. Right Ventricle Normal right ventricular size and function. Right ventricular systolic pressure within normal limits. Right Atrium Normal right atrial size. Left Atrium Normal left atrial size. Mitral Valve Structurally normal mitral valve. Trace mitral regurgitation. No mitral stenosis. Aortic Valve Trileaflet aortic valve. Mild aortic stenosis with a peak gradient of 21 mmHg and a mean gradient of 11mmHg. No aortic stenosis. Tricuspid Valve Pulmonic Valve Structurally normal pulmonic valve. Trace pulmonic regurgitation. No pulmonic stenosis. Pericardium No pericardial or pleural effusion. Aorta Normal size aortic root and proximal ascending aorta. CONCLUSIONS Reason for echo, shortness of breath, congestive heart failure, abnormal cardiac enzymes LVH with preserved systolic function Calcific aortic valve with mild stenosis Previewed by: Dr. Valdo Stafford MD (Electronically Signed) Final Date: 20 Feb 2025 12:18
--- NOTE | 2025-02-20 13:26 | NM ---
EXAMINATION TYPE: NM pul vent and perfuse DATE OF EXAM: 02/20/2025 CLINICAL INDICATION: Male, 74 years old with history of elevated d dimer, sob; COMPARISON: Radiograph same day TECHNIQUE: Utilizing inhalation of 35.4 mCi Tc 99m DTPA aerosol and intravenous injection of 5.13 mC i of Tc 99m MAA, ventilation and perfusion images are acquired post injection in multiple projections . FINDINGS: Normal radiotracer distribution is noted in the lungs. There is no evidence of mismatched defects. IMPRESSION: No mismatched defects to suggest pulmonary embolus by PIOPED criteria. [facility], Workstation: [facility]ushJOSE, 02/20/2025 1:24 PM
[2025-02-20] MEDS: HEPARIN SODIUM 1,000 UN/ML (10ML VL) IV PRN (14:11)
[2025-02-20] MEDS: ATORVASTATIN 40 MG TAB PO SCH (19:51)
[2025-02-21 07:35] LABS: Basophils # (A) 0.02 10*3/uL (0.00-0.10); Basophils % (A) 0.6 %; Eosinophils # (A) 0.04 10*3/uL (0.04-0.35); Eosinophils % (A) 1.2 %; HCT 34.7 % (39.6-50.0); HGB 11.6 g/dL (13.0-17.0); Lymphocytes # (A) 1.04 10*3/uL (0.90-5.00); Lymphocytes % (A) 31.1 %; MCHC 33.4 g/dL (32.0-37.0); MCV 95.6 fL (80.0-97.0); Mean Platelet Volume 10.8 fL (9.5-12.2); Monocytes # (A) 0.35 10*3/uL (0.20-1.00); Monocytes % (A) 10.5 %; Neutrophils # (A) 1.89 10*3/uL (1.80-7.70); Neutrophils % (A) 56.6 %; RBC 3.63 10*6/uL (4.40-5.60); RDW 13.9 % (11.5-14.5); WBC 3.34 10*3/uL (4.50-10.00)
[2025-02-21 07:52] LABS: Partial Thromboplastin Time 39.2 sec (22.0-30.0); Prothrombin Time 11.3 sec (10.0-12.5)
[2025-02-21 07:58] LABS: Sodium 140 mmol/L (137-145)
[2025-02-21 07:59] LABS: African American GFR (CKD) 35 (>60 ml/min/1.73 sqM); Anion Gap 7 mmol/L; Blood Urea Nitrogen 36 mg/dL (9-20); Calcium 8.8 mg/dL (8.4-10.2); Carbon Dioxide 26 mmol/L (22-30); Chloride 107 mmol/L (98-107); Non-African American GFR(CKD) 30 (>60 ml/min/1.73 sqM); Potassium 3.9 mmol/L (3.5-5.1)
[2025-02-21 08:00] LABS: Glucose 105 mg/dL (74-99)
[2025-02-21] MEDS: amLODIPine 10 MG TAB PO SCH (09:03)
[2025-02-21 09:39] LABS: Platelet Count 76 10*3/uL (140-440)
[2025-02-21] MEDS: lisinopriL 5 MG TAB PO STA (10:30)
[2025-02-21] MEDS: ASPIRIN 81 MG PO SCH (10:30)
--- NOTE | 2025-02-21 11:52 | P.PN ---
Subjective Progress Note Date: 02/21/25 This is Pilo Berman NP, I'm dictating on behalf of Dr. Stafford's H&P and A&P. Patient was interviewed and examined. Patient is a pleasant 74-year-old male who presented to the hospital with concerns for new onset congestive heart failure. This morning the patient reports that his breathing is back to normal. He reports that he is feeling better and back to his baseline. He is denying chest pain, shortness of breath, heart palpitations. GENERAL: Well-appearing, well-nourished and in no acute distress. NECK: Supple without JVD or thyromegaly. LUNGS: Breath sounds clear to auscultation bilaterally. Respiration equal and unlabored. No wheezes, rales or rhonchi. HEART: Regular rate and rhythm without murmurs, rubs or gallops. S1 and S2 heard. EXTREMITIES: Normal range of motion, no edema. No clubbing or cyanosis. Peripheral pulses intact and strong. VITALS: Temp 97.8, pulse 55, respirations 17, blood pressure 148/77, O2 saturation 100% on 2 L TELEMETRY: Sinus mechanism LABS: White count 3.34, hemoglobin 11.6, platelets 76, sodium 140, potassium 3.9, chloride 107, BUN 36, creatinine 2.07, calcium 8.8 IMPRESSION: 1. Acute heart failure 2. Elevated D-dimer, low probability of PE per VQ scan 3. NSTEMI 4. Hypertension 5. Obstructive sleep apnea 6. Chronic kidney disease 7. Benign prostatic hypertrophy 8. Renal cell cancer status post resection 6 years ago 9. Macular degeneration 10. Thrombocytopenia PLAN: Discontinue heparin drip. Discontinue IV Lasix. Start Lasix 40 mg p.o. daily. Discontinue metoprolol. Start carvedilol 3.125 mg daily. Increase lisinopril to 10 mg daily. Patient has had an NSTEMI, the question now is do we test him noninvasively or do we attempt a cardiac catheterization. Cardiac catheterization will likely result in the patient requiring at least short-term dialysis due to his chronic kidney disease as well as only having 1 kidney. Plan of care has been discussed with the patient, we are going to attempt to optimize his blood pressure at this time. We will revisit possible catheterization with the patient tomorrow. Further recommendations based on patient's clinical course. Objective - Vital Signs Vital signs: Vital Signs Temp 97.8 F 02/21/25 08:59 Pulse 55 L 02/21/25 08:59 Resp 17 02/21/25 08:59 BP 148/77 02/21/25 08:59 Pulse Ox 100 02/21/25 08:59 FiO2 Intake & Output 02/20/25 02/21/25 02/21/25 18:59 06:59 18:59 Intake Total 227.377 164.923 303.012 Output Total 3699 1100 1200 Balance -3471.623 -935.077 -896.988 Weight 107.048 kg 108.8 kg Intake: IV 24.3 Heparin Sod,Pork in 0.45% 24.3 NaCl 25,000 unit In 0.45 % NaCl 1 250ml.bag @ 9.35 UNITS/KG/HR 10.009 mls/ hr IV .Q24H [facility] Rx#: [id number] Intake, IV Titration 85.077 164.923 63.012 Amount Heparin Sod,Pork in 0.45% 85.077 164.923 63.012 NaCl 25,000 unit In 0.45 % NaCl 1 250ml.bag @ 9.35 UNITS/KG/HR 10.009 mls/ hr IV .Q24H [facility] Rx#: [id number] Oral 118 240 Output: Urine 2700 1100 1200 Uretheral ([place]) 1900 Post Void Residual 999 Other: Voiding Method Indwelling Catheter Indwelling Catheter Indwelling Catheter - Labs CBC & Chem 7: 02/21/25 06:48 02/21/25 06:48 Labs: Abnormal Lab Results - Last 24 Hours (Table) 02/20/25 02/20/25 02/20/25 Range/Units 13:14 13:14 20:11 WBC (4.50-10.00) 10*3/uL RBC (4.40-5.60) 10*6/uL Hgb (13.0-17.0) g/dL Hct (39.6-50.0) % Plt Count (140-440) 10*3/uL APTT 32.5 H 43.8 H (22.0-30.0) sec BUN (9-20) mg/dL Creatinine (0.66-1.25) mg/dL Glucose (74-99) mg/dL Troponin I 2.110 H* (0.000-0.034) ng/mL 02/21/25 02/21/25 02/21/25 Range/Units 06:48 06:48 06:48 WBC 3.34 L (4.50-10.00) 10*3/uL RBC 3.63 L (4.40-5.60) 10*6/uL Hgb 11.6 L (13.0-17.0) g/dL Hct 34.7 L (39.6-50.0) % Plt Count 76 L (140-440) 10*3/uL APTT 39.2 H (22.0-30.0) sec BUN 36 H (9-20) mg/dL Creatinine 2.07 H (0.66-1.25) mg/dL Glucose 105 H (74-99) mg/dL Troponin I (0.000-0.034) ng/mL
[2025-02-21] MEDS: TAMSULOSIN 0.4 MG CAP.ER.24H PO SCH (12:24)
--- NOTE | 2025-02-21 13:59 | P.PN ---
Subjective Progress Note Date: 02/21/25 Hospital Course: Patient is a 74-year-old male with past medical history of kidney cancer status post nephrectomy, hypertension, gout, non-Hodgkin's lymphoma, remote smoking quit 20 years ago, who presented for shortness of breath that started in the middle of the night. No associated fevers, chills, chest pain, cough, nausea, vomiting abdominal pain, dysuria. Patient reports noncompliant with blood pressure medications, previously was on 3 medications. No personal history of heart failure, COPD or asthma. Yesterday evening they had [place] food, also adds that patient consumes lo ts of salt, we discussed diet modifications. On arrival afebrile, heart rate in 70s, BP elevated initially 197/92, came down to 149/72, SpO2 97% on 2l Blood work revealed mild leukopenia WBC 4.24, previously back in 2021 his WBC count was once noted to be 3.97, hemoglobin is normal, platelet count low 77, patient has chronic thrombocytopenia, D-dimer elevated 3.6, sodium and potassium normal, creatinine 2.05, back in December 30.88, AST and ALT normal, glucose elevated 162, GFR CKD 3B, troponin elevated 0.0 88, BNP 3400, Cepheid negative. EKG showed sinus rhythm, QTc 454, no ST elevation, chest x-ray with mild vascular congestion and pleural effusion bilateral, venous duplex showed no evidence of DVT bilaterally. Patient was started on heparin drip, cardiology consulted. VQ scan ordered. Dane young was started on Lasix 40 IV daily, aspirin 81 mg p.o. daily, atorvastatin milligram p.o. nightly, lisinopril 5 mg p.o. daily, metoprolol succinate 50 mg p.o. daily, amlodipine 10 mg p.o. daily 02/21, seen examined at bedside, feels well, shortness of breath improved significantly, I took his oxygen off, SpO2 95 to 96%, discussed with nurse. Patient noted that he had some difficulties with urination prior to this admission also had difficult Luevano catheter insertion, will discontinue Luevano a nd start patient on Flomax, void trials, again discussed with the nurse. Cardiology discontinued heparin and switched Lasix to oral 40 mg daily, instead of metoprolol, started on Coreg 3.125 daily and increase lisinopril to 10 mg. Patient troponin trended up, cardiology considering heart cath versus medical management taking into account patient's CKD and single kidney. , A1c 5.5, TSH normal 2.3, LDL 70, VQ scan negative Pertinent positives and negatives as discussed above, a complete review of systems was performed and all other systems are negative. Vitals Signs Reviewed. General: [nontoxic], [no distress], [appears at stated age] Derm: [warm], [dry] Head: [atraumatic], [normocephalic], [symmetric] Eyes: [EOMI], [no lid lag], [anicteric sclera] Mouth: [no lip lesion], [mucus membranes moist] Cardiovascular: [S1S2 reg], [no murmur] Lungs: [CTA bilateral], [mild bibasilar crackles ] , [no accessory muscle use] Abdominal: [soft], [ nontender to palpation], [no guarding], [no appreciable organomegaly] Ext: [no gross muscle atrophy], [no edema], [no contractures] Neuro: [ CN II-XI grossly intact], [no focal neuro deficits] Psych: [Alert], [oriented], [appropriate affect] Assessment and Plan: Shortness of breath likely secondary to new onset HFpEF NSTEMI likely secondary to above Uncontrolled hypertension, history of noncompliance Elevated D-dimer, DVT and PE ruled out -Cardiology discontinued heparin and switched Lasix to oral 40 mg daily, instead of metoprolol, started on Coreg 3.125 daily and increase lisinopril to 10 mg. Patient troponin trended up, cardiology considering heart cath versus medical management taking into account patient's CKD and single kidney, amlodipine 10 mg p.o. daily -Continue telemetry -VQ scan negative -Check metabolic panel with lipid, A1c 5.5, TSH normal 2.3, LDL 70 - Strict I's and O's, daily weight Urinary retention -Start Flomax, Luevano discontinued, void trial Hemoglobin dropped 13.5-11.6 -Will recheck CBC, no reported hematuria or blood in stool History of kidney cancer status post nephrectomy CKD 3B -Monitor BMP daily DVT ppx: Lovenox Code status: Full code Anticipated discharge place: Home Anticipated discharge time: 24 hours Objective - Vital Signs Vital signs: Vital Signs Temp 97.4 F L 02/21/25 12:23 Pulse 53 L 02/21/25 12:23 Resp 17 02/21/25 12:23 BP 129/62 02/21/25 12:23 Pulse Ox 96 02/21/25 12:23 FiO2 Intake & Output 02/20/25 02/21/25 02/21/25 18:59 06:59 18:59 Intake Total 227.377 164.923 303.012 Output Total 3699 1100 2100 Balance -3471.623 -935.077 -1796.988 Weight 107.048 kg 108.8 kg Intake: IV 24.3 Heparin Sod,Pork in 0.45% 24.3 NaCl 25,000 unit In 0.45 % NaCl 1 250ml.bag @ 9.35 UNITS/KG/HR 10.009 mls/ hr IV .Q24H [facility] Rx#: [id number] Intake, IV Titration 85.077 164.923 63.012 Amount Heparin Sod,Pork in 0.45% 85.077 164.923 63.012 NaCl 25,000 unit In 0.45 % NaCl 1 250ml.bag @ 9.35 UNITS/KG/HR 10.009 mls/ hr IV .Q24H [facility] Rx#: [id number] Oral 118 240 Output: Urine 2700 1100 2100 Uretheral (Luevano) 1900 900 Post Void Residual 999 Other: Voiding Method Indwelling Catheter Indwelling Catheter Indwelling Catheter - Labs CBC & Chem 7: 02/21/25 06:48 02/21/25 06:48 Labs: Abnormal Lab Results - Last 24 Hours (Table) 02/20/25 02/20/25 02/20/25 Range/Units 13:14 13:14 20:11 WBC (4.50-10.00) 10*3/uL RBC (4.40-5.60) 10*6/uL Hgb (13.0-17.0) g/dL Hct (39.6-50.0) % Plt Count (140-440) 10*3/uL APTT 32.5 H 43.8 H (22.0-30.0) sec BUN (9-20) mg/dL Creatinine (0.66-1.25) mg/dL Glucose (74-99) mg/dL Troponin I 2.110 H* (0.000-0.034) ng/mL 02/21/25 02/21/25 02/21/25 Range/Units 06:48 06:48 06:48 WBC 3.34 L (4.50-10.00) 10*3/uL RBC 3.63 L (4.40-5.60) 10*6/uL Hgb 11.6 L (13.0-17.0) g/dL Hct 34.7 L (39.6-50.0) % Plt Count 76 L (140-440) 10*3/uL APTT 39.2 H (22.0-30.0) sec BUN 36 H (9-20) mg/dL Creatinine 2.07 H (0.66-1.25) mg/dL Glucose 105 H (74-99) mg/dL Troponin I (0.000-0.034) ng/mL
[2025-02-21] MEDS: carvediloL 3.125 MG TAB PO SCH (16:28)
[2025-02-22 08:42] LABS: Basophils # (A) 0.02 10*3/uL (0.00-0.10); Basophils % (A) 0.6 %; Eosinophils # (A) 0.08 10*3/uL (0.04-0.35); Eosinophils % (A) 2.3 %; HCT 35.6 % (39.6-50.0); HGB 12.2 g/dL (13.0-17.0); Lymphocytes # (A) 1.12 10*3/uL (0.90-5.00); Lymphocytes % (A) 32.3 %; MCH 32.4 pg (27.0-32.0); MCHC 34.3 g/dL (32.0-37.0); MCV 94.7 fL (80.0-97.0); Mean Platelet Volume 10.7 fL (9.5-12.2); Monocytes # (A) 0.31 10*3/uL (0.20-1.00); Monocytes % (A) 8.9 %; Neutrophils # (A) 1.93 10*3/uL (1.80-7.70); Neutrophils % (A) 55.6 %; RBC 3.76 10*6/uL (4.40-5.60); RDW 13.5 % (11.5-14.5); WBC 3.47 10*3/uL (4.50-10.00)
[2025-02-22 08:51] LABS: African American GFR (CKD) 33 (>60 ml/min/1.73 sqM); Anion Gap 9 mmol/L; Blood Urea Nitrogen 38 mg/dL (9-20); Calcium 9.1 mg/dL (8.4-10.2); Carbon Dioxide 29 mmol/L (22-30); Chloride 103 mmol/L (98-107); Glucose 143 mg/dL (74-99); Non-African American GFR(CKD) 29 (>60 ml/min/1.73 sqM); Potassium 3.8 mmol/L (3.5-5.1); Sodium 141 mmol/L (137-145)
[2025-02-22] MEDS: lisinopriL 10 MG TAB PO SCH (09:00)
[2025-02-22] MEDS: FUROSEMIDE 40 MG TAB PO SCH (09:00)
[2025-02-22 09:42] LABS: Platelet Count 88 10*3/uL (140-440)
--- NOTE | 2025-02-22 10:04 | P.PN ---
Subjective Progress Note Date: 02/22/25 This is Pilo Berman NP, I'm dictating on behalf of Dr. Stafford's H&P and A&P. Patient was interviewed and examined. Patient is a pleasant 74-year-old male who presented to the hospital with co vianey for new onset congestive heart failure. Patient actually had an NSTEMI. He reports that he is feeling good today. He is denying chest pain and shortness of breath. He has decided that he does not want to pursue cardiac catheterization and wants to try blood pressure control instead. GENERAL: Well-appearing, well-nourished and in no acute distress. NECK: Supple without JVD or thyromegaly. LUNGS: Breath sounds clear to auscultation bilaterally. Respiration equal and unlabored. No wheezes, rales or rhonchi. HEART: Regular rate and rhythm without murmurs, rubs or gallops. S1 and S2 heard. EXTREMITIES: Normal range of motion, no edema. No clubbing or cyanosis. Peripheral pulses intact and strong. VITALS: Temp 97.5, pulse 49, respirations 18, blood pressure 115/64, O2 saturation 95% on room air TELEMETRY: Sinus mechanism LABS: White count 3.4, hemoglobin 12.2, platelets 88, sodium 141, potassium 3.8, chloride 103, BUN 38, creatinine 2.17, calcium 9.1 IMPRESSION: 1. Acute heart failure 2. Elevated D-dimer, low probability of PE per VQ scan 3. NSTEMI 4. Hypertension 5. Obstructive sleep apnea 6. Chronic kidney disease 7. Benign prostatic hypertrophy 8. Renal cell cancer status post resection 6 years ago 9. Macular degeneration 10. Thrombocytopenia PLAN: Discontinue Lasix. Start Plavix in addition to aspirin for 6 weeks, then discontinue aspirin and continue Plavix only. Continue amlodipine, atorvastatin, carvedilol, lisinopril. Will continue to monitor patient for good blood pressure control. Further recommendations based on patient's clinical course. Objective - Vital Signs Vital signs: Vital Signs Temp 97.5 F L 02/22/25 07:55 Pulse 49 L 02/22/25 07:55 Resp 18 02/22/25 07:55 BP 115/64 02/22/25 07:55 Pulse Ox 95 02/22/25 07:55 FiO2 Intake & Output 02/21/25 02/22/25 02/22/25 18:59 06:59 18:59 Intake Total 543.012 240 Output Total 2100 2800 Balance -1556.988 -2560 Weight 108 kg Intake: Intake, IV Titration 63.012 Amount Heparin Sod,Pork in 0.45% 63.012 NaCl 25,000 unit In 0.45 % NaCl 1 250ml.bag @ 9.35 UNITS/KG/HR 10.009 mls/ hr IV .Q24H [facility] Rx#: [id number] Oral 480 240 Output: Urine 2100 1700 Uretheral (Luevano) 900 Post Void Residual 1100 Other: Voiding Method Urinal Urinal - Labs CBC & Chem 7: 02/22/25 08:15 02/22/25 08:15 Labs: Abnormal Lab Results - Last 24 Hours (Table) 02/22/25 02/22/25 Range/Units 08:15 08:15 WBC 3.47 L (4.50-10.00) 10*3/uL RBC 3.76 L (4.40-5.60) 10*6/uL Hgb 12.2 L (13.0-17.0) g/dL Hct 35.6 L (39.6-50.0) % MCH 32.4 H (27.0-32.0) pg Plt Count 88 L (140-440) 10*3/uL BUN 38 H (9-20) mg/dL Creatinine 2.17 H (0.66-1.25) mg/dL Glucose 143 H (74-99) mg/dL
--- NOTE | 2025-02-22 11:03 | P.PN ---
Subjective Progress Note Date: 02/22/25 Hospital Course: Patient is a 74-year-old male with past medical history of kidney cancer status post nephrectomy, hypertension, gout, non-Hodgkin's lymphoma, remote smoking quit 20 years ago, who presented for shortness of breath that started in the middle of the night. No associated fevers, chills, chest pain, cough, nausea, vomiting abdominal pain, dysuria. Patient reports noncompliant with blood pressure medications, previously was on 3 medications. No personal history of heart failure, COPD or asthma. Yesterday evening they had [place] food, also adds that patient consumes lo ts of salt, we discussed diet modifications. On arrival afebrile, heart rate in 70s, BP elevated initially 197/92, came down to 149/72, SpO2 97% on 2l Blood work revealed mild leukopenia WBC 4.24, previously back in 2021 his WBC count was once noted to be 3.97, hemoglobin is normal, platelet count low 77, patient has chronic thrombocytopenia, D-dimer elevated 3.6, sodium and potassium normal, creatinine 2.05, back in December 30.88, AST and ALT normal, glucose elevated 162, GFR CKD 3B, troponin elevated 0.0 88, BNP 3400, Cepheid negative. EKG showed sinus rhythm, QTc 454, no ST elevation, chest x-ray with mild vascular congestion and pleural effusion bilateral, venous duplex showed no evidence of DVT bilaterally. Patient was started on heparin drip, cardiology consulted. VQ scan ordered. Dane young was started on Lasix 40 IV daily, aspirin 81 mg p.o. daily, atorvastatin milligram p.o. nightly, lisinopril 5 mg p.o. daily, metoprolol succinate 50 mg p.o. daily, amlodipine 10 mg p.o. daily 02/21, seen examined at bedside, feels well, shortness of breath improved significantly, I took his oxygen off, SpO2 95 to 96%, discussed with nurse. Patient noted that he had some difficulties with urination prior to this admission also had difficult Luevano catheter insertion, will discontinue Luevano a nd start patient on Flomax, void trials, again discussed with the nurse. Cardiology discontinued heparin and switched Lasix to oral 40 mg daily, instead of metoprolol, started on Coreg 3.125 daily and increase lisinopril to 10 mg. Patient troponin trended up, cardiology considering heart cath versus medical management taking into account patient's CKD and single kidney. , A1c 5.5, TSH normal 2.3, LDL 70, VQ scan negative 02/22: Seen and examined at bedside, no events overnight, breathing is good, continues to have urinary retention and incomplete bladder emptying. Per cardiology, patient would prefer to proceed with blood pressure control instead of heart cath, creatinine slightly up, his Lasix was discontinued, patient started on Plavix in addition to aspirin for 6 weeks followed by Plavix only after. Possible discharge in the next 24 hours. urology follow-up information provided in the AVS Pertinent positives and negatives as discussed above, a complete review of systems was performed and all other systems are negative. Vitals Signs Reviewed. General: [nontoxic], [no distress], [appears at stated age] Derm: [warm], [dry] Head: [atraumatic], [normocephalic], [symmetric] Eyes: [EOMI], [no lid lag], [anicteric sclera] Mouth: [no lip lesion], [mucus membranes moist] Cardiovascular: [S1S2 reg], [no murmur] Lungs: [CTA bilateral], [no crackles] , [no accessory muscle use] Abdominal: [soft], [ nontender to palpation], [no guarding], [no appreciable organomegaly] Ext: [no gross muscle atrophy], [no edema], [no contractures] Neuro: [ CN II-XI grossly intact], [no focal neuro deficits] Psych: [Alert], [oriented], [appropriate affect] Assessment and Plan: Shortness of breath secondary to new onset HFpEF NSTEMI likely secondary to above Uncontrolled hypertension, history of noncompliance Elevated D-dimer, DVT and PE ruled out - Cardiology discontinued Lasix - Continue on Coreg 3.125 daily ,lisinopril to 10 mg, amlodipine 10 mg p.o. daily -Plavix added to aspirin, plan for 6 weeks dual antiplatelet therapy followed by Plavix alone -Continue telemetry -VQ scan negative -Check metabolic panel with lipid, A1c 5.5, TSH normal 2.3, LDL 70 - Strict I's and O's, daily weight Urinary retention -Start Flomax, Luevano discontinued, void trial Hemoglobin dropped 13.5-11.6>12.2 -Will recheck CBC, no reported hematuria or blood in stool History of kidney cancer status post nephrectomy CKD 3B -Monitor BMP daily - Lasix discontinued DVT ppx: Lovenox Code status: Full code Anticipated discharge place: Home Anticipated discharge time: 24 hours Objective - Vital Signs Vital signs: Vital Signs Temp 97.5 F L 02/22/25 07:55 Pulse 49 L 02/22/25 07:55 Resp 18 02/22/25 07:55 BP 115/64 02/22/25 07:55 Pulse Ox 95 02/22/25 07:55 FiO2 Intake & Output 02/21/25 02/22/25 02/22/25 18:59 06:59 18:59 Intake Total 543.012 240 Output Total 2100 2800 Balance -1556.988 -2560 Weight 108 kg Intake: Intake, IV Titration 63.012 Amount Heparin Sod,Pork in 0.45% 63.012 NaCl 25,000 unit In 0.45 % NaCl 1 250ml.bag @ 9.35 UNITS/KG/HR 10.009 mls/ hr IV .Q24H [facility] Rx#: [id number] Oral 480 240 Output: Urine 2100 1700 Uretheral (Luevano) 900 Post Void Residual 1100 Other: Voiding Method Urinal Urinal Urinal - Labs CBC & Chem 7: 02/22/25 08:15 02/22/25 08:15 Labs: Abnormal Lab Results - Last 24 Hours (Table) 02/22/25 02/22/25 Range/Units 08:15 08:15 WBC 3.47 L (4.50-10.00) 10*3/uL RBC 3.76 L (4.40-5.60) 10*6/uL Hgb 12.2 L (13.0-17.0) g/dL Hct 35.6 L (39.6-50.0) % MCH 32.4 H (27.0-32.0) pg Plt Count 88 L (140-440) 10*3/uL BUN 38 H (9-20) mg/dL Creatinine 2.17 H (0.66-1.25) mg/dL Glucose 143 H (74-99) mg/dL
[2025-02-22] MEDS: CLOPIDOGREL 75 MG TAB PO SCH (11:24)
[2025-02-23 08:58] VITALS: RESP 17
--- NOTE | 2025-02-23 10:31 | P.PN ---
Subjective HISTORY OF PRESENT ILLNESS: Patient examined this morning at bedside. Patient is currently sitting up in the chair. Patient denies any chest pain or pressure. He denies any shortness of breath. Patient does report having urinary retention and had an indwelling urinary catheter placed. Vital signs are stable. PHYSICAL EXAM: VITAL SIGNS: Reviewed. GENERAL: Well-developed in no acute distress. NECK: Supple. No JVD or thyromegaly LUNGS: Respirations even and unlabored. Lungs essentially clear to auscultation bilaterally. HEART: Regular rate and rhythm. S1 and S2 heard. EXTREMITIES: Normal range of motion. No clubbing or cyanosis. Peripheral pulses intact. No lower extremity edema ASSESSMENT: Non-STEMI Acute heart failure with preserved EF, 55 to 60% Hypertension Mild aortic stenosis Chronic kidney disease History of renal cell cancer s/p resection 6 years ago Thrombocytopenia History of macular degeneration History of BPH History of obstructive sleep apnea Urinary retention requiring indwelling urinary catheter PLAN: Patient declining to undergo cardiac catheterization given risk for worsening kidney function and hemodialysis. Will continue with medical management at this time Continue current cardiac medications including amlodipine, aspirin, Lipitor, Coreg, Plavix, and lisinopril Per Dr. Stafford continue aspirin and Plavix for 6 weeks then discontinue Plavix and continue with aspirin only Patient is stable for discharge today from a cardiac standpoint Patient to follow-up postdischarge in the office with Dr. Stafford Nurse practitioner note has been reviewed by physician. Signing provider agrees with the documented findings, assessment, and plan of care documented by TE[employer] OPERATOR HELPER as a scribe. Objective - Vital Signs Vital signs: Vital Signs Temp 97.9 F 02/23/25 08:50 Pulse 57 L 02/23/25 08:50 Resp 17 02/23/25 08:50 BP 104/67 02/23/25 08:50 Pulse Ox 97 02/23/25 08:50 FiO2 Intake & Output 02/22/25 02/23/25 02/23/25 18:59 06:59 18:59 Intake Total 480 180 Output Total 1500 1000 Balance -1020 -1000 180 Weight 106.5 kg Intake: Oral 480 180 Output: Urine 1500 1000 Uretheral (Luevano) 600 275 Other: Voiding Method Indwelling Catheter Indwelling Catheter Indwelling Catheter - Labs CBC & Chem 7: 02/22/25 08:15 02/22/25 08:15
[2025-02-23 12:27] VITALS: BP 126/66; PULSE 53; TEMP 97.5
--- NOTE | 2025-02-23 16:33 | P.DS ---
Providers Date of admission: 02/20/25 06:08 Expected date of discharge: 02/23/25 Attending physician: Jhonatan Brown MD Consults: 02/20/25 06:05 Consult Physician Urgent Consulting Provider: [facility] Consult Reason/Comments: new onset heart failure, acc htn, nstemi Do you want consulting provider notified?: Yes Primary care physician: Stated None Hospital Course: 74 year old M with PMH of renal CA status post nephrectomy, HTN, gout, non- Hodgkin's lymphoma, remote smoking quit 20 years ago, who presented for shortness of breath that started in the middle of the night. He reported consumption of salty food and non compliance with anti-hypertensive medications. In the ED he underwent extensive evaluation. BP 197/92, HR 76, T 97.4F, RR 20, 97% on 5L aerosol mask. Labs significant for WBC 4.24, RBC 4.27, APTT 43.8, D- Dimer 36, BUN 34, Cr 2.05, glu 162, A1c 5.4, Trop 0.088, 1.41, 2.11, BNP 3400, Lipid panel, T. Chol 121, LDL 72.6. TSH 2.37. EKG showed sinus rhythm, QTc 454, no ST elevation. CXR showed mild vascular congestion and pleural effusion bilateral. Patient was started on IV lasix and admitted for Cardiology evaluation. Venous doppler negative for DVT and V/Q scan negative for PE. Echo showed EF 55-60% with diastolic dysfunction. Lasix eventually transitioned to PO. Decision was made to not pursue cardiac cath due to poor renal function. He also had urinary retention requiring Luevano catheter. 02/23 Patient was seen and examined. Doing well. He denies any chest pain, SOB or palpitations. He would prefer to go home with Luevano catheter and follow up with Urology outpatient. No new labs done today. Discharge Plan: Prescription sent for ASA, Lipitor, Plavix, Coreg, Lisinopril, Amlodipine and Flomax. Advised to follow up with Urology within 1 week of discharge for voiding trial. Repeat BMP within 3 days and follow up with PCP within 1-2 days for results. Follow up with Dr. Stafford within 1 week of discharge for further titration of medications. BP 126/66, HR 53, T 97.5F, RR 17, 97% on RA. General: no distress, appears at stated age Derm: warm, dry Head: atraumatic, normocephalic, symmetric Mouth: no lip lesion, mucus membranes moist Cardiovascular: S1 S2 reg. No murmur. Lungs: Decreased BS bilaterally, no accessory muscle use Ext: no gross muscle atrophy, no edema, no contractures. Neuro: No focal neurologic deficits. Psych: Alert and oriented. Discharge Diagnosis: NSTEMI Hypertensive emergency HFpEF exacerbation Urinary retention Elevated D-Dimer CKD stage IIIb History of renal CA status post nephrectomy This complex discharge took 35 minutes to complete. Patient Condition at Discharge: Stable Plan - Discharge Summary Discharge Rx Participant: No New Discharge Prescriptions: New Aspirin 81 mg PO DAILY #30 tab Tamsulosin [Flomax] 0.4 mg PO BID #60 cap lisinopriL [Zestril] 10 mg PO DAILY #30 tab carvediloL [Coreg] 3.125 mg PO BID-W/MEALS #60 tab Atorvastatin [Lipitor] 40 mg PO HS #30 tab amLODIPine [Norvasc] 10 mg PO DAILY #30 tab Clopidogrel [Plavix] 75 mg PO DAILY #30 tab Discharge Medication List Aspirin 81 mg PO DAILY #30 tab 02/23/25 [Rx] Atorvastatin [Lipitor] 40 mg PO HS #30 tab 02/23/25 [Rx] Clopidogrel [Plavix] 75 mg PO DAILY #30 tab 02/23/25 [Rx] Tamsulosin [Flomax] 0.4 mg PO BID #60 cap 02/23/25 [Rx] amLODIPine [Norvasc] 10 mg PO DAILY #30 tab 02/23/25 [Rx] carvediloL [Coreg] 3.125 mg PO BID-W/MEALS #60 tab 02/23/25 [Rx] lisinopriL [Zestril] 10 mg PO DAILY #30 tab 02/23/25 [Rx] Follow up Appointment(s)/Referral(s): Valdo Stafford MD [STAFF PHYSICIAN] - 1 Week Mau Perez MD [STAFF PHYSICIAN] - 1 Week None,Stated [Primary Care Provider] - 1-2 days Ambulatory/Diagnostic Orders: Basic Metabolic Panel [LAB.AMB] Time Frame: 3 Days, Location: None Selected Patient Instructions/Handouts: *Surgery [facility] - Luevano Catheter Instructions, Luevano Catheter Placement and Care (ED), Hypertensive Crisis (DC), Hypertension (DC), Urinary Leg Bag (GEN) Activity/Diet/Wound Care/Special Instructions: Repeat BMP in 3 days to be followed up with PCP. Discharge Disposition: HOME SELF-CARE
--- NOTE | 2025-02-26 09:09 | CDI ---
Documentation Clarification Form Date: 02/26/25 From: Eliza Morrison Admit Date: 02/20/2025 06:08:00 AM Patient Name: Fili Zhou Visit Number: [id number] Discharge Date: 02/23/2025 03:20:00 PM ATTENTION: The Clinical Documentation Specialists (CDI) and [facility] Coding Staff appreciate your assistance in clarifying documentation. Please respond to the clarification below the line at the bottom and electronically sign. The CDI & [facility] Coding staff will review the response and follow-up if needed. Please note: Queries are made part of the Legal Health Record. If you have any questions, please contact the author of this message via ITS. Dr. Yunior Merlos, Hypoxic Respiratory Failure is documented in the ED Note and H&P which may lack sufficient clinical evidence/support in the medical record. Additional clarification is requested. Patient history/risk factors: Hx of smoking, hx of kidney cancer, hx non- Hodgkins lymphoma, HTN Clinical Indicators: HP: SOB likely secondary to new onset of CHF. Uncontrolled HTN. HX of noncompliance of medications. No hyoxia documented, wean off oxygen. ED Note: Respiratory exam: Present: normal lung sounds bilaterally. Absent:respiratory distress,wheezes,rales, rhonchi,stridor. Treatment: O2 5L aerosol mask, O2 2 L NC After work up and study, please clarify which diagnosis is most appropriate? [ x] Hypoxic Respiratory Failure ruled out [ ] Hypoxic Respiratory Failure is a valid diagnosis as evidenced by the following: , please specify acuity (acute, acute on chronic or chronic) [ ] Respiratory Insufficiency [ ] Unable to determine [ ] Other, please specify MTDD
== END 2025-02-23 15:20 | disposition home or self-care (01) | DRG 280 ==
LOC: EC 03:07 → 3SCARD 06:08
PROVIDERS: ADMIT Internal Medicine; ATTEND Internal Medicine
DX: I13.0 Hypertensive heart and chronic kidney disease with heart failure and stage 1 through stage 4 chronic kidney disease, or unspecified chronic kidney disease (principal); I50.33 Acute on chronic diastolic (congestive) heart failure; I21.4 Non-ST elevation (NSTEMI) myocardial infarction; D69.6 Thrombocytopenia, unspecified; I16.1 Hypertensive emergency; N18.32 Chronic kidney disease, stage 3b; N40.1 Benign prostatic hyperplasia with lower urinary tract symptoms; R33.8 Other retention of urine; G47.33 Obstructive sleep apnea (adult) (pediatric); H35.30 Unspecified macular degeneration; T50.916A Underdosing of multiple unspecified drugs, medicaments and biological substances, initial encounter; Z91.148 Patient's other noncompliance with medication regimen for other reason; Z85.528 Personal history of other malignant neoplasm of kidney; Z87.891 Personal history of nicotine dependence; Z85.72 Personal history of non-Hodgkin lymphomas
CPT/HCPCS: 36415; 51702; 51798; 71046; 78582; 80048; 80053; 80061; 83036; 83880; 84443; 84484; 85025; 85379; 85610; 85730; 87636; 93005; 93306; 93970; 96365; 96366; 96375; 99285

== ENCOUNTER → 2025-03-24 | Outpatient (CLI) | payer MEDICARE ==
[2025-03-24 15:20] LABS: Blood Urea Nitrogen 31.5 mg/dL (9.0-27.0); Calcium 9.9 mg/dL (8.7-10.3); Carbon Dioxide 23.5 mmol/L (21.6-31.8); Chloride 107 mmol/L (96-109); Glucose 82 mg/dL (70-110); Potassium 4.5 mmol/L (3.5-5.5); Sodium 142 mmol/L (135-145)
[2025-03-24 16:29] LABS: Basophils # (A) 0.02 X 10*3/uL (0.00-0.10); Basophils % (A) 0.6 %; Eosinophils # (A) 0.18 X 10*3/uL (0.04-0.35); Eosinophils % (A) 5.6 %; HCT 37.2 % (39.6-50.0); HGB 12.2 g/dL (13.0-17.0); Lymphocytes # (A) 1.03 X 10*3/uL (0.90-5.00); Lymphocytes % (A) 32.3 %; MCH 31.2 pg (27.0-32.0); MCHC 32.8 g/dL (32.0-37.0); MCV 95.1 FL (80.0-97.0); Monocytes # (A) 0.36 X 10*3/uL (0.20-1.00); Monocytes % (A) 11.3 %; NRBC Per 100 WBC 0 X 10*3/uL (0.00-0.01); Neutrophils # (A) 1.59 X 10*3/uL (1.80-7.70); Neutrophils % (A) 49.9 %; Platelet Count 83 X 10*3/uL (140-440); RBC 3.91 X 10*6/uL (4.40-5.60); RBC Morphology Normal (Normal); RDW 13.6 % (11.5-14.5); WBC 3.19 X 10*3/uL (4.50-10.00)
[2025-03-24 18:47] LABS: Appearance,Urine Cloudy (Clear); Bilirubin,Urine Negative (Negative); Blood,Urine Moderate (Negative); Color,Urine Yellow (Yellow); Ketones,Urine Negative (Negative); Nitrite,Urine Positive (Negative); Specific Gravity,Urine 1.008 (1.001-1.030); Urobilinogen,Urine 0.2 E.U./DL
[2025-03-24 19:17] LABS: Bacteria,Urine 3+ (None Seen)
== END | disposition home or self-care (01) ==
LOC: LABPAT 11:45
PROVIDERS: ATTEND Urology
DX: Z01.812 Encounter for preprocedural laboratory examination (principal); N40.1 Benign prostatic hyperplasia with lower urinary tract symptoms; N13.8 Other obstructive and reflux uropathy
CPT/HCPCS: 80048; 81001; 85025; 87086

== ENCOUNTER 2025-03-31 06:09 | Day surgery (SDC) | payer MEDICARE ==
[2025-03-25 12:38] VITALS: BMI 31.8
--- NOTE | 2025-03-27 12:45 | P.HPIHPCON ---
History of Present Illness H&P Date: 03/27/25 Chief Complaint: BPH, urinary retention 74-year-old male with history of urinary retention, he has failed multiple trial of voids. Underwent a cystoscopy that showed evidence of an occlusive prostate. Option of a transurethral resection of the prostate was discussed with him. He is aware of the risk which include but not limited to bleeding, infection, urinary incontinence, retrograde ejaculation. Discussed the risk of persistent retention even with a TURP. He understood all the risk and agreed to proceed Consent for Procedure: I have explained the operation/procedure to the patient, including the risks, benefits, side effects, alternative therapies (including not receiving the proposed treatment or service), the likelihood of the patient achieving his/her goals, and potential recuperation problems for the procedure/sedation/analgesia, as well as any blood products, if indicated. I also explained to the patient the risks, benefits and side effects of the alternatives, as well as the risks related to not receiving the proposed procedure, care, treatment, or services. Past Medical History Past Medical History: Cancer, Heart Failure, Hypertension, Prostate Disorder, Renal Disease, Sleep Apnea/CPAP/BIPAP Additional Past Medical History / Comment(s): RT. Kidney Cancer over 10 yrs ago and non hodgkin's lymphoma over 10 yrs ago-no longer follows with hem/oc, macular degeneration, questionable MD 01/2025-not confirmed, new onset acute heart failure 01/2025, appears to have had thrombocytopenia but pt. states he hasn't been told this before, BPH History of Any Multi-Drug Resistant Organisms: None Reported Past Surgical History: Orthopedic Surgery Additional Past Surgical History / Comment(s): RT. kidney removed, knee surgery bilat, bilat. cataracts rem. Past Anesthesia/Blood Transfusion Reactions: No Reported Reaction Past Psychological History: No Psychological Hx Reported Smoking Status: Former smoker Past Alcohol Use History: Occasional Past Drug Use History: None Reported - Past Family History Father Family Medical History: Chest Pain / Angina, Coronary Artery Disease (CAD) Medications and Allergies Home Medications Medication Instructions Recorded Confirmed Type Aspirin 81 mg PO DAILY #30 tab 02/23/25 03/25/25 Rx Atorvastatin [Lipitor] 40 mg PO HS #30 tab 02/23/25 03/25/25 Rx Clopidogrel [Plavix] 75 mg PO DAILY #30 tab 02/23/25 03/25/25 Rx Tamsulosin [Flomax] 0.4 mg PO BID #60 cap 02/23/25 03/25/25 Rx amLODIPine [Norvasc] 10 mg PO DAILY #30 tab 02/23/25 03/25/25 Rx carvediloL [Coreg] 3.125 mg PO BID-W/MEALS #60 tab 02/23/25 03/25/25 Rx lisinopriL [Zestril] 10 mg PO DAILY #30 tab 02/23/25 03/25/25 Rx Allergies Allergy/AdvReac Type Severity Reaction Status Date / Time No Known Allergies Allergy Verified 03/25/25 11:56 Surgical - Exam - General no distress, no pain - Eyes normal ocular movement, no pale - ENT normal nares, normal mucosa - Respiratory normal expansion, normal respiratory effort - Abdomen Abdomen: soft, non tender, no distended - Psychiatric oriented to time, oriented to person, oriented to place Assessment and Plan Assessment: OR for a TURP
[2025-03-31] MEDS ORDERED: LIDOCAINE 1% (10MG/ML) FOR IV START INTRADERMA PRN (06:23)
[2025-03-31] MEDS: IV FLUID CONTINUATION 1,000 ML IV ONE (06:40)
[2025-03-31] MEDS ORDERED: fentaNYL (PF) 50 MCG/ML 2 ML AMP IV PRN (07:00)
[2025-03-31] MEDS: LACTATED RINGERS 1,000 ML IV SCH (07:00)
[2025-03-31] MEDS: ONDANSETRON 4 MG/2 ML VIAL IVP ONE (07:01)
[2025-03-31] MEDS: DEXAMETHASONE SOD PHOSPHATE 4 MG/ML 1 ML VIAL IV ONE (07:01)
[2025-03-31] MEDS ORDERED: GLYCOPYRROLATE 0.2 MG/ML 2 ML VIAL ONE (07:25)
[2025-03-31] MEDS ORDERED: ROCURONIUM 10 MG/ML (5 ML VIAL) IV ONE (07:25)
[2025-03-31] MEDS ORDERED: SUCCINYLCHOLINE CHLORIDE 200 MG/10 ML VIAL IV ONE (07:25)
[2025-03-31] MEDS ORDERED: fentaNYL (PF) 50 MCG/ML 2 ML AMP ONE (07:25)
[2025-03-31] MEDS ORDERED: ePHEDrine 50 MG/ML 1 ML VIAL ONE (07:25)
[2025-03-31] MEDS ORDERED: NEOSTIGMINE 1 MG/ML 10 ML VIAL ONE (07:25)
[2025-03-31] MEDS ORDERED: PROPOFOL 10 MG/ML 20 ML VIAL IV ONE (07:25)
[2025-03-31] MEDS ORDERED: LIDOCAINE 1% INJ 10MG/ML (20 ML MDV) ONE (07:25)
[2025-03-31] MEDS: GENTAMICIN 120 MG in SODIUM CHLORIDE 0.9% 100 ML IVPB PRN (07:45)
[2025-03-31 09:00] VITALS: TEMP 97.1
--- NOTE | 2025-03-31 09:13 | P.OP ---
Date of Procedure: 03/31/25 Preoperative Diagnosis: BPH, urinary retention Postoperative Diagnosis: Same Procedure(s) Performed: TURP (bipolar) Anesthesia: BRIGITTE Surgeon: Mau Peerz Estimated Blood Loss (ml): 100 Pathology: other (Prostate adenoma) Condition: stable Disposition: PACU Indications for Procedure: 74-year-old male with history of urinary retention, he has failed multiple trial of voids. Underwent a cystoscopy that showed evidence of an occlusive prostate. Option of a transurethral resection of the prostate was discussed with him. He is aware of the risk which include but not limited to bleeding, infection, urinary incontinence, retrograde ejaculation. Discussed the risk of persistent retention even with a TURP. He understood all the risk and agreed to proceed Description of Procedure: Patient brought the operating, general anesthesia was induced. He was prepped and draped in sterile fashion placed in a dorsolithotomy position. Resectoscope with a 25 [place] sheath was inserted per urethra, cystoscopy was performed which showed a trilobar hyperplasia with an occlusive prostate. Using the bipolar resectoscope the prostate was resected down to the surgical capsule, point of bleeding was controlled with cautery. Resection was carried distal to the bladder neck and staying proximal to the Veru. Repeat cystoscopy in the end of the resection showed no evidence of bleeding, injury to the bladder or the ureteral orifice ease. The prostate fossa was open. At this time the resectoscope was withdrawn and a 22 [place] was placed with a return of clear urine, the catheter was irrigated to clear. Patient tolerated procedure well secondary covering stable condition
[2025-03-31] MEDS: HYDROmorphone 0.5 MG/0.5 ML SYRINGE IVP PRN (09:38)
[2025-03-31 10:31] VITALS: RESP 16
[2025-03-31 11:14] VITALS: BP 119/77; PULSE 52
== END 2025-03-31 11:42 | disposition home or self-care (01) ==
LOC: OR 06:09
PROVIDERS: ATTEND Urology
DX: C61 Malignant neoplasm of prostate (principal); N40.1 Benign prostatic hyperplasia with lower urinary tract symptoms; N13.8 Other obstructive and reflux uropathy; R33.8 Other retention of urine; I13.0 Hypertensive heart and chronic kidney disease with heart failure and stage 1 through stage 4 chronic kidney disease, or unspecified chronic kidney disease; I50.32 Chronic diastolic (congestive) heart failure; N18.9 Chronic kidney disease, unspecified; I25.2 Old myocardial infarction; G47.33 Obstructive sleep apnea (adult) (pediatric); D69.6 Thrombocytopenia, unspecified; M10.9 Gout, unspecified; Z79.02 Long term (current) use of antithrombotics/antiplatelets; Z79.82 Long term (current) use of aspirin; Z79.84 Long term (current) use of oral hypoglycemic drugs; Z79.899 Other long term (current) drug therapy; Z87.891 Personal history of nicotine dependence; Z85.72 Personal history of non-Hodgkin lymphomas; Z85.528 Personal history of other malignant neoplasm of kidney; Z90.5 Acquired absence of kidney
CPT/HCPCS: 52601; 88344; 88305; J0330; J1100; J2710; J0690; J2405; J2003; J3010; J1580; J2704; J1171; J1596